=== PATIENT | male | born 1950 | race Caucasian/White ===

== ENCOUNTER 2016-12-19 08:03 | Day surgery (SDC) | payer OTHER, BC ==
[2016-12-15 10:32] VITALS: BMI 24.7
[2016-12-19] MEDS ORDERED: BUPIVACAINE HCL/EPINEPHRINE/PF 30 ML VIAL IJ ONE (09:51)
[2016-12-19] MEDS ORDERED: MIDAZOLAM HCL 2 MG/2 ML SINGLE DOSE VIAL ONE (10:04)
--- NOTE | 2016-12-19 10:41 | HP ---
Admitting History and Physical - Admission Chief Complaint: Right shoulder weakness and pain. History of Present Illness: 66 yo M with 10 years of worsening right shoulder weakness, decreased ROM, and pain presents for a planned right shoulder arthroscopic rotator cuff repair with Dr. Knott. History Source: Patient Limitations to Obtaining History: No Limitations - Past Medical History Cardiovascular: Yes: HTN, Hyperlipdemia Renal/: Yes: BPH - Past Surgical History Additional Past Surgical History: right carpal tunnel release sinus surgery - Advance Directives Advance Directives: Yes: Health Care Proxy - Smoking History Smoking history: Never smoked Have you smoked in the past 12 months: No - Alcohol/Substance Use Hx Alcohol Use: Yes (SOCIALLY- WEEKENDS) Home Medications - Allergies Allergies/Adverse Reactions: Allergies Allergy/AdvReac Type Severity Reaction Status Date / Time No Known Allergies Allergy Verified 12/19/16 08:56 - Home Medications Home Medications: Ambulatory Orders Cholecalciferol (Vitamin D3) [Vitamin D3] 2,000 unit PO DAILY 12/15/16 Dutasteride [Avodart] 0.5 mg PO DAILY 12/15/16 Ezetimibe/Simvastatin [Vytorin 10-20 mg Tablet] 1 tab PO HS 12/15/16 Lisinopril 10 mg PO DAILY 12/15/16 Tadalafil [Cialis] 5 mg PO DAILY 12/15/16 Alfuzosin HCl [Alfuzosin HCl ER] 10 mg PO DAILY 12/19/16 Review of Systems - Review of Systems Constitutional: denies: Chills, Fever HENT: denies: Throat Pain Cardiovascular: denies: Chest Pain, Palpitations Respiratory: denies: Cough, SOB Gastrointestinal: denies: Abdominal Pain, Nausea, Vomiting Genitourinary: denies: Dysuria Musculoskeletal: reports: Joint Pain (right shoulder) Neurological: denies: Dizziness, Headache Hematology/Lymphatic: denies: Easily Bruised, Excessive Bleeding Physical Examination Vital Signs: Vital Signs Temperature 99 F 12/19/16 08:54 Pulse Rate 62 12/19/16 08:54 Respiratory Rate 17 12/19/16 08:54 Blood Pressure 145/73 12/19/16 08:54 O2 Sat by Pulse Oximetry (%) 99 12/19/16 08:54 Constitutional: Yes: Well Nourished, No Distress, Calm HENT: Yes: Atraumatic, Normocephalic Cardiovascular: Yes: Regular Rate and Rhythm Respiratory: Yes: Regular, CTA Bilaterally Gastrointestinal: Yes: WNL, Soft Musculoskeletal: Yes: Joint Stiffness (Right shoulder) Integumentary: Yes: WNL Neurological: Yes: WNL, Alert, Oriented Problem List - Problems (1) Rotator cuff disorder Code(s): M67.919 - UNSP DISORDER OF SYNOVIUM AND TENDON, UNSPECIFIED SHOULDER Assessment/Plan 66 yo M with 10 years of worsening right shoulder weakness, decreased ROM, and pain presents for a planned right shoulder arthroscopic rotator cuff repair with Dr. Knott.
[2016-12-19] MEDS ORDERED: ceFAZolin SODIUM 1 GM VIAL ONE (10:45)
[2016-12-19] MEDS ORDERED: DEXAMETHASONE SOD PHOSPHATE 4 MG/1 ML VIAL ONE (10:47)
[2016-12-19] MEDS ORDERED: ONDANSETRON 4 MG/2 ML VIAL ONE (10:47)
[2016-12-19] MEDS ORDERED: KETOROLAC TROMETHAMINE 30 MG/1 ML VIAL ONE (10:47)
[2016-12-19] MEDS ORDERED: LACTATED RINGERS SOLUTION 1,000 ML IV SCH (11:00)
[2016-12-19] MEDS ORDERED: ONDANSETRON 4 MG/2 ML VIAL IVPUSH PRN (11:17)
[2016-12-19] MEDS ORDERED: oxyCODONE HCL 5 MG TABLET PO PRN ×3 (11:17→12:37)
[2016-12-19] MEDS ORDERED: ePHEDrine SULFATE 50 MG/1 ML AMPULE ONE (11:23)
[2016-12-19] MEDS ORDERED: oxyCODONE HCL 10 MG SUSTAINED ACTING TABLET PO ONE (12:08)
--- NOTE | 2016-12-19 12:11 | DS ---
Physical Examination Vital Signs: Vital Signs Temperature 99 F 12/19/16 08:54 Pulse Rate 62 12/19/16 08:54 Respiratory Rate 17 12/19/16 08:54 Blood Pressure 145/73 12/19/16 08:54 O2 Sat by Pulse Oximetry (%) 99 12/19/16 08:54 Discharge Summary Reason For Visit: ROTATOR CUFF TEAR RIGHT SHOULDER Current Active Problems Rotator cuff disorder (Acute) Condition: Good - Instructions Diet, Activity, Other Instructions: Post Operative Instructions: Shoulder Arthroscopy Dr Cristian Knott 1. Pain following a Shoulder Arthroscopy is variable and can be significant. Some patients will have more pain than others. You have been provided with a prescription for medication that contains a narcotic. You are not allowed to drive while on this medication. You should NOT take Tylenol (Acetaminophen) when taking the pain medication ( it will result in an overdose). Feel free to take medications such as Ibuprofen or Naprosyn in addition to the pain medicine if you do not have any problems with the NSAID class of medications. 2. Apply ice to the shoulder for 15 minutes every hour. You may continue this for as many days as necessary. 3. You may find sleeping on an incline (reclining chair) to be more comfortable for the first few days. 4. You must remain in your sling at all times except when showering. The only exception to this is to allow you to stretch your elbow a few times a day to prevent your hand and forearm from swelling. 5. You are not to use your arm to reach for anything, lift anything or carry anything until instructed otherwise. 6. You may remove the bandages in 48 hours. You may shower at that point. 7. Place band-aids on the sutures after your shower.Do not put any creams or lotions on the incision until after the sutures are removed. 8. Please call the office to schedule a visit to have your sutures removed. 9. If for any reason you believe you may have an infection or are concerned, please feel free to call me. I can be reached through our office number 24 hours a day. 10. Please call our office with any questions; we will review the surgical findings during your post-operative visit. Disposition: HOME - Home Medications Comprehensive Discharge Medication List: Ambulatory Orders Cholecalciferol (Vitamin D3) [Vitamin D3] 2,000 unit PO DAILY 12/15/16 Dutasteride [Avodart] 0.5 mg PO DAILY 12/15/16 Ezetimibe/Simvastatin [Vytorin 10-20 mg Tablet] 1 tab PO HS 12/15/16 Lisinopril 10 mg PO DAILY 12/15/16 Tadalafil [Cialis] 5 mg PO DAILY 12/15/16 Alfuzosin HCl [Alfuzosin HCl ER] 10 mg PO DAILY 12/19/16
--- NOTE | 2016-12-19 12:11 | OP ---
Operative Note - Note: Operative Date: 12/19/16 Pre-Operative Diagnosis: Right shoulder massive RCT, Labral tear, bursitis Operation: RSA, labral debridement, decompression, massive RCR Post-Operative Diagnosis: Same as Pre-op Surgeon: Cristian Knott Anesthesiologist/CHERRY GROWER: Henrry Potts Anesthesia: Local Operative Report Dictated: Yes
--- NOTE | 2016-12-19 14:44 | SURG ---
Surgery Recreational Sports Director Note Recreational Sports Director: Imelda Trejo PA-C Date of Service: 12/19/16 Diagnosis: Right shoulder rotator cuff tear, labral tear, bursitis Procedure: RSA, labral debridement, decompression, RCR I was present for the entirety of the operative procedure. For further detail, please refer to operative report. Visit type - Case Type Case Type: Scheduled Admission - New patient This patient is new to me today: Yes Date on this admission: 12/19/16
[2016-12-19 17:50] VITALS: BP 138/76; PULSE 63; TEMP 98.7
--- NOTE | 2016-12-22 10:34 | PATH ---
Surgical Pathology Report Patient Name: ERAN LUBIN Med. Rec. #: [id number] /Age/Gender: 1950 (Age: 66) / M Account: [id number] Location: [facility] Taken: 12/19/2016 Received: 12/19/2016 Reported: 12/22/2016 Physicians: Cristian Knott M.D. Specimen(s) Received RIGHT SHOULDER SHAVINGS Clinical History Right shoulder rotator cuff tear Final Diagnosis RIGHT SHOULDER, ARTHROSCOPIC SHAVING: PORTIONS OF SYNOVIUM, CARTILAGE, AND BONE CONSISTENT WITH ARTHROSCOPIC SHAVINGS. Electronically Signed George Crespo M.D. Gross Description Received in formalin, labeled "right shoulder shavings," is a 3.0 x 2.8 x 0.3 cm. aggregate of schwartz-yellow soft tissue fragments. A employment representative portion is submitted in one cassette. /12/19/201612/19/2016
== END 2016-12-19 14:50 | disposition home or self-care (01) ==
LOC: FASU 08:03
PROVIDERS: ATTEND Orthopaedic Surgery
PROC: 0RBJ4ZZ Excision of Right Shoulder Joint, Percutaneous Endoscopic Approach (ICD-10-PCS; 2016-12-19)
PROC: 0LB14ZZ Excision of Right Shoulder Tendon, Percutaneous Endoscopic Approach (ICD-10-PCS; principal; 2016-12-19 11:03)
PROC: 0RNJ4ZZ Release Right Shoulder Joint, Percutaneous Endoscopic Approach (ICD-10-PCS; 2016-12-19 11:03)
DX: M75.121 Complete rotator cuff tear or rupture of right shoulder, not specified as traumatic (principal); M66.811 Spontaneous rupture of other tendons, right shoulder; S46.811A Strain of other muscles, fascia and tendons at shoulder and upper arm level, right arm, initial encounter; X58.XXXA Exposure to other specified factors, initial encounter; Y93.9 Activity, unspecified; Y92.9 Unspecified place or not applicable; I10 Essential (primary) hypertension; E78.5 Hyperlipidemia, unspecified; N40.0 Benign prostatic hyperplasia without lower urinary tract symptoms
CPT/HCPCS: 88304-TC; 94760

== ENCOUNTER 2018-01-22 06:17 | Day surgery (SDC) | payer OTHER, MEDICARE, BC ==
[2018-01-15 10:21] VITALS: BMI 23.6
[2018-01-22 11:07] VITALS: TEMP 97.5
[2018-01-22 11:15] VITALS: BP 129/68; PULSE 61
== END 2018-01-22 11:20 | disposition home or self-care (01) ==
LOC: FASU 06:17
PROVIDERS: ATTEND Orthopaedic Surgery
PROC: 0LQ24ZZ Repair Left Shoulder Tendon, Percutaneous Endoscopic Approach (ICD-10-PCS; principal; 2018-01-22)
PROC: 0RNK4ZZ Release Left Shoulder Joint, Percutaneous Endoscopic Approach (ICD-10-PCS; 2018-01-22)
PROC: 0RBK4ZZ Excision of Left Shoulder Joint, Percutaneous Endoscopic Approach (ICD-10-PCS; 2018-01-22)
DX: M75.102 Unspecified rotator cuff tear or rupture of left shoulder, not specified as traumatic (principal); M65.812 Other synovitis and tenosynovitis, left shoulder; M75.52 Bursitis of left shoulder
CPT/HCPCS: 88304-TC; 94760